=== PATIENT | female | born 1985 | race Caucasian/White ===

== ENCOUNTER 2016-05-16 08:45 | Outpatient (CLI) | payer BC ==
[2016-08-20] MEDS ORDERED: PRENATAL VIT1 TAB PO (16:51)
[2016-08-20] MEDS ORDERED: COLACE-DPS100 MG PO (16:51)
[2016-08-20] MEDS ORDERED: NORCO 5-325 TA1 EACH PO (16:52)
[2016-08-20] MEDS ORDERED: MOTRIN-DPS800 MG PO (16:52)
== END 2016-05-16 13:05 | disposition home or self-care (01) ==
LOC: 2LDRP 08:45 → BC 08:45
DX: O99.89 Other specified diseases and conditions complicating pregnancy, childbirth and the puerperium (principal); R10.9 Unspecified abdominal pain

== ENCOUNTER 2016-08-17 04:30 | Inpatient (IN) | payer BC ==
[~2016-08-17] VITALS: Ht 157.5 cm; Wt 72.6 kg
--- NOTE | 2016-08-19 03:32 | OR ---
ADMIT: 08/17/2016 RM/LOC: 218 [facility] MR#: [id number] [address] [address] NATHANIELBÁRBARA Fara [address] [place] [address] Operative/Delivery Room Report SEX: F AGE: 31 : 1985 SURGERY DATE: 08/17/2016 SURGEON: Daisy Romero MD PREOPERATIVE DIAGNOSES: 1. Intrauterine at 39 and 0/7th weeks. 2. Previous delivery x2. 3. Active labor. POSTOPERATIVE DIAGNOSES: 1. Intrauterine at 39 and 0/7th weeks. 2. Previous delivery x2. 3. Active labor. PROCEDURE: Repeat low transverse . MANAGER LSW: Sharath Thompson MD ANESTHESIA: Spinal. ESTIMATED BLOOD LOSS: 500 mL. URINE OUTPUT: 200 mL clear urine. IV FLUIDS: 1500 mL crystalloid. CONDITION: Good. COMPLICATIONS: None. COUNTS: Correct x4 per operating room staff. FINDINGS: 1. Viable male infant delivered in vertex presentation at 10:32. Weight 3300 g. scores 9 and 9. 2. Normal maternal anatomy. DESCRIPTION OF PROCEDURE: The patient was taken to the operating room where spinal anesthesia was obtained without difficulty. She was then prepared and draped in the normal sterile fashion in the dorsal supine position with a leftward tilt. A Pfannenstiel skin incision was then made with a scalpel and carried through the underlying layer of fascia. The fascia was then incised in the midline and the incision extended laterally using the Garcia scissors. The superior aspect of the fascial incision was then grasped with the Holly clamps, elevated, and the underlying rectus muscles dissected off with Bovie electrocautery. Attention was then turned to the inferior aspect of this incision, which in a similar fashion, was grasped with the Holly clamps, elevated, and the underlying rectus muscles dissected off with Bovie electrocautery. The rectus muscles had been inadvertently during ADMIT: 08/17/2016 RM/LOC: 218 [facility] MR#: [id number] [facility] [address] [place], [place] [address] BÁRBARA ARMSTRONG [address] [place], [place] [id number] Operative/Delivery Room Report SEX: F AGE: 31 : 1985 dissection of the facia and a finger sweep revealed no adhesions. The peritoneal incision was then extended superiorly and inferiorly with good visualization of the bladder. The bladder blade was then inserted and the vesicouterine peritoneum identified, tented up, and entered sharply with the Metzenbaum scissors. The incision was then extended laterally and a bladder flap created digitally. The bladder blade was then replaced and the lower uterine segment incised in a transverse fashion with the scalpel. The hysterotomy was then extended laterally manually. The was delivered atraumatically. The cord was doubly clamped and cut. The was handed off to the awaiting nurse. Cord blood was sent. The 's weight was 3300 g. scores were 9 and 9. The placenta was then removed by fundal massage of the uterus. The uterus was then exteriorized and cleared of all clots and debris. The uterine incision was then repaired with #1 chromic in a running, locked fashion. Two [id number] stitches were used on the lower uterine segment to obtain excellent hemostasis. The uterus then returned to the abdomen and the gutters were cleared of all clots. The hysterotomy was reinspected and there was found to be a small area of bleeding on the bladder flap which was made hemostatic with several stitches of 2-0 Vicryl. The subfascial compartments were then inspected and found to be hemostatic. The fascia was then closed in a running fashion with 0 Vicryl. The subcutaneous tissue was closed in a running fashion with 2-0 Vicryl Rapide. The skin was closed in a subcuticular fashion with 4-0 Vicryl Rapide. The patient tolerated the procedure well. Sponge, lap, and needle counts were correct x4 per operating room staff. The patient and infant were taken to her room in stable condition. Daisy Romero MD/ saran JOB #: [id number] CC: Daisy Romero, Attending Physician Daisy Romero, Family Physician
[2016-08-20] MEDS ORDERED: COLACE-DPS100 MG PO (16:51)
[2016-08-20] MEDS ORDERED: PRENATAL VIT1 TAB PO (16:51)
[2016-08-20] MEDS ORDERED: MOTRIN-DPS800 MG PO (16:52)
[2016-08-20] MEDS ORDERED: NORCO 5-325 TA1 EACH PO (16:52)
--- NOTE | 2016-08-27 08:10 | HP ---
ADMIT: 08/17/2016 RM/LOC: 218 [facility] MR#: [id number] [id number] [place], [place] [address] NATHANIELBÁRBARA Fara [address] [place] [address] Pre-OP History and Physical SEX: F AGE: 31 : 1985 Corrected: 08/20/2016 0337 djs DATE OF SERVICE: 08/17/2016 CHIEF COMPLAINT: Uterine contractions. HISTORY OF PRESENT ILLNESS: The patient is a 31-year-old, 5, para 2-0- 2-2 with an intrauterine at 39 and 0/7th weeks by a 6-week ultrasound, who presented to Labor and Delivery with complaints of uterine contractions. The patient was noted to be aidan every 6-7 minutes, and did change her cervix and was therefore admitted for labor. PAST MEDICAL HISTORY: 1. History of ectopic . 2. Rh negative status. 3. Anxiety. 4. Intermittent constipation. 5. Gestational thrombocytopenia. PAST SURGICAL HISTORY: Tonsillectomy in 2007, dilation and curettage in 2013, deliveries in 2012 and 2014. FAMILY HISTORY: Father with hypertension and diabetes. Mother with renal cell cancer. SOCIAL HISTORY: The patient denies alcohol, tobacco, or illicit drug use. She is to [place], and employed time lock expert at [employer]. MEDICATIONS: 1. vitamins 1 tablet p.o. daily. 2. Unisom 1 tablet p.o. at bedtime p.r.n. ALLERGIES: NO KNOWN MEDICAL ALLERGIES. REVIEW OF SYSTEMS: Significant for uterine contractions as described in history of present illness. The patient denies vaginal bleeding, loss of fluid, or decreased movement. OBSTETRICAL LABS: Blood type O negative, antibody screen negative, RPR nonreactive, rubella immune, HIV negative, gonorrhea and chlamydia negative, hepatitis B surface antigen negative. Diabetic screen 172. Three-hour glucose tolerance test 93, 171, 142, 120. Group B strep negative. PHYSICAL EXAMINATION: GENERAL: Well-developed, well-nourished white female. Alert and oriented x3, in no acute distress. VITAL SIGNS: Blood pressure 118/83, pulse 86, respirations 16, temperature 97.9 degrees Fahrenheit. HEENT: Head is normocephalic, atraumatic. Pupils are equal, round, reactive. Extraocular muscles are intact. ADMIT: 08/17/2016 RM/LOC: 218 [facility] MR#: [id number] [address] BÁRBARA ARMSTRONG [address] [place] [address] Pre-OP History and Physical SEX: F AGE: 31 : 1985 NECK: Supple. Trachea midline. Thyroid not palpable. HEART: Regular rate and rhythm. LUNGS: Clear to auscultation bilaterally. ABDOMEN: Soft, nontender, and gravid. EXTREMITIES: No clubbing, cyanosis, or edema. NEUROLOGIC: Cranial nerves II through XII grossly intact. 2+ deep tendon reflexes noted. PELVIC: Sterile vaginal examination by the nurse on admission reveals the cervix to be 3 cm dilated, 80% effaced, -2 station. heart tones are noted in the 130s with 15 x 15 accelerations, moderate long-term variability, and no decelerations. Uterine contractions are noted every 4 to 6 minutes on the monitor. ASSESSMENT AND PLAN: 1. This is a 31-year-old, 5, para 2-0-2-2, with an intrauterine at 39 and 0/7th weeks by a 6-week ultrasound, who presents to Labor and Delivery in active labor. 2. Previous x2. Repeat for delivery will be performed. 3. Group B strep negative. No prophylaxis will be provided. 4. Fetus is vertex and overall reassuring. Daisy Romero MD/ saran JOB #: [id number] CC: Daisy Romero, Attending Physician Daisy Romero, Family Physician Corrected: 08/20/2016 0337 norma
--- NOTE | 2016-10-12 13:50 | DS ---
ADMIT: 08/17/2016 RM/LOC: 218 [facility] MR#: [id number] [address] NATHANIEL BÁRBARA Chaudhari [address] [place] [address] General Discharge Summary SEX: F AGE: 31 : 1985 ADMISSION DATE: 08/17/2016 DISCHARGE DATE: 08/19/2016 ADMISSION DIAGNOSES: 1. A 31-year-old, 5, para 2-0-2-2, with intrauterine at 39- 0/7th weeks by 6-week ultrasound. 2. Active labor. 3. History of ectopic . 4. Rh negative status. 5. Anxiety. 6. Intermittent constipation. 7. Gestational thrombocytopenia. DISCHARGE DIAGNOSES: 1. Status post repeat low transverse . 2. History of ectopic . 3. Rh negative status. 4. Anxiety. 5. Intermittent constipation. 6. Gestational thrombocytopenia. SERVICE: Obstetrics. PHYSICIAN: Daisy Romero MD. CONSULTATIONS: None. PROCEDURES: Repeat low transverse on 08/17/2016. HISTORY AND PHYSICAL EXAM: Briefly, the patient is a 31-year-old, 5, para 2-0-2-2, with an intrauterine at 39-0/7th weeks by a 6-week ultrasound, who presented to Labor and Delivery with complaints of uterine contractions. The patient was found to be in active labor and repeat low transverse was performed. Please see dictated history and physical exam for more information. HOSPITAL COURSE: On hospital day #1, the patient was admitted and underwent repeat low transverse without complication. Please see dictated operative report for more information. On postoperative day #1, the patient was complaining of headache and nausea which she thought was secondary to the Percocet. The pain was worsening since she stopped narcotics; however, she was tolerating a regular diet, had normal lochia, and was passing gas. Her hemoglobin and platelets had decreased appropriately, and she had been given Rhophylac due to Rh negative status. Due to the patient's narcotic intolerance, the patient was given Tylenol instead of Percocet. On the evening of postoperative #1, the patient was changed to Lortab. On postoperative day #2, the patient's pain was well controlled on Lortab and Motrin. Her nausea had resolved and she was felt to be stable for discharge. ADMIT: 08/17/2016 RM/LOC: 218 [facility] MR#: [id number] [id number] [address] BÁRBARA ARMSTRONG [address] [place] [address] General Discharge Summary SEX: F AGE: 31 : 1985 DISPOSITION: Discharged home. DISCHARGE CONDITION: Good. DISCHARGE MEDICATIONS: 1. Colace 100 mg p.o. b.i.d. 2. vitamins 1 tablet p.o. daily. 3. Lortab 5/325 mg, one to two p.o. q.4 hours p.r.n. pain. 4. Motrin 800 mg p.o. q.8 hours p.r.n. pain. DISCHARGE INSTRUCTIONS: The patient is to maintain pelvic rest for 6 weeks, no driving while taking narcotics, and no lifting greater than 15 pounds. The patient is to follow up at the [facility] in [address] Romero for checkup and a repeat blood count. The patient is to call the clinic or return to the nearest emergency room should she experience pain not controlled by pain medications, heavy vaginal bleeding, intractable nausea or vomiting, temperature greater than 100.4 degrees Fahrenheit, or any incisional concerns. Daisy Romero MD/ modl JOB #: [id number] CC: Daisy Romero MD, Attending Physician Daisy Romero MD, Family Physician
== END 2016-08-19 11:20 | disposition home or self-care (01) | DRG 765 ==
LOC: BC 04:30 → 2LDRP 04:30 → BC 08-24 08:00
PROVIDERS: ADMIT Obstetrics & Gynecology
PROC: 10D00Z1 Extraction of Products of Conception, Low, Open Approach (ICD-10-PCS; principal; 2016-08-17)
PROC: 3E0234Z Introduction of Serum, Toxoid and Vaccine into Muscle, Percutaneous Approach (ICD-10-PCS; principal; 2016-08-17)
DX: O34.211 Maternal care for low transverse scar from previous cesarean delivery (principal); O99.12 Other diseases of the blood and blood-forming organs and certain disorders involving the immune mechanism complicating childbirth; D69.6 Thrombocytopenia, unspecified; O75.89 Other specified complications of labor and delivery; Z88.5 Allergy status to narcotic agent; Z37.0 Single live birth; Z3A.39 39 weeks gestation of pregnancy